=== PATIENT | female | born 1990 | race Caucasian/White ===

== ENCOUNTER 2016-02-27 05:39 | Emergency (ER) | payer OTHER ==
[~2016-02-27] VITALS: Ht 165.1 cm; Wt 80.0 kg
[~2016-02-27 05:39] MED LIST: AMOXICILLIN500 M1 PO; BACLOFEN10 MG PO; BENTYL10 MG PO; IBUPROFEN600 MG PO; ISONIAZID,INH300 MG PO; MACROBID100 MG PO; MOTRIN600 MG PO; NAPROXEN500 MG PO; NOHOMEMEDS; NORCO 5/3251 TABLET PO; PERIOGARD480 ML MM; TOBRAMYCIN SULFA5 ML RIGHT EYE; VITAMIN B-6250 MG PO
[2016-02-27] MEDS ORDERED: LICE TREATMENT118 ML TP (06:40)
[2016-02-27 06:57] VITALS: BP 121/77
== END 2016-02-27 07:29 | disposition home or self-care (01) ==
LOC: EME 05:39
DX: B86 Scabies (principal)
CPT/HCPCS: 99281; 99283

== ENCOUNTER 2016-08-09 12:32 | Emergency (ER) | payer OTHER ==
[~2016-08-09] VITALS: Ht 162.6 cm; Wt 78.0 kg
[~2016-08-09 12:32] MED LIST changes: +LICE TREATMENT118 ML TP
[2016-08-09] MEDS ORDERED: FLEXERIL10 MG PO (15:49)
[2016-08-09 16:25] VITALS: BP 115/59
== END 2016-08-09 16:27 | disposition home or self-care (01) ==
LOC: EME 12:32
DX: M54.6 Pain in thoracic spine (principal); G89.29 Other chronic pain
CPT/HCPCS: 71020; 99281; 99283; J1885